=== PATIENT | male | born 1970 | race Two or more races ===

== ENCOUNTER 2020-04-09 12:07 | Emergency (ER) | payer SELFPAY ==
[~2020-04-09] VITALS: Ht 165.1 cm; Wt 77.1 kg
[2020-04-09] MEDS ORDERED: LIDOCAINE 1% INJ 50 ML MDV IJ ONE (12:19)
[2020-04-09 14:42] VITALS: BP 160/90
--- NOTE | 2020-04-09 14:42 | NUR ---
Patient discharged to home in stable condition. Written and verbal after care instructions given with assistance of CHARLY Ortega. Patient verbalizes understanding of instruction.
== END 2020-04-09 14:43 | disposition home or self-care (01) ==
LOC: ER 12:10
DX: S61.412A Laceration without foreign body of left hand, initial encounter (principal); X58.XXXA Exposure to other specified factors, initial encounter; Y93.89 Activity, other specified; Y92.89 Other specified places as the place of occurrence of the external cause; Y99.8 Other external cause status
CPT/HCPCS: 12002; 99283; A6403; J3490